=== PATIENT | male | born 1965 | race Caucasian/White ===

== ENCOUNTER 2021-06-24 17:11 | Inpatient (IN) ==
[2021-06-24 18:18] LABS: Basophils # (auto) 0.02 K/uL (0-0.2); Basophils % (auto) 0.5 %; Eosinophils # (auto) 0.06 K/uL (0-0.5); Eosinophils % (auto) 1.5 %; Hematocrit (blood only) 45.2 % (42-52); Hemoglobin 15.6 g/dL (14.0-18.0); Lymphocytes # (auto) 1.55 K/uL (1.2-3.4); Lymphocytes % (auto) 39.8 %; Mean Corpuscular Hemoglobin 31.5 pg (25-34); Mean Corpuscular Hgb Conc 34.5 g/dL (32-36); Mean Corpuscular Volume 91.1 fL (80-100); Mean Platelet Volume 9.8 fL (7.4-10.4); Monocytes % (auto) 10.3 %; Neutrophils # (auto) 1.86 K/uL (1.4-6.5); Neutrophils % (auto) 47.9 %; Platelet Count 249 K/uL (130-400); RDW Coefficient of Variation 12.4 % (11.5-14.5); RDW Standard Deviation 41.2 fL (36.4-46.3); Red Blood Count 4.96 M/uL (4.7-6.1); White Blood Count 3.89 K/uL (4.8-10.8)
[2021-06-24] MEDS ORDERED: ASPIRIN CHEW 324 MG PO STA (18:25)
[2021-06-24 18:30] LABS: Partial Thromboplastin Time 25.4 Seconds (21.0-31.0); Prothrombin Time 9.8 Seconds (9.0-12.0)
--- NOTE | 2021-06-24 18:35 | Emergency Department Note ---
History of Present Illness General Chief complaint: Chest Pain Stated complaint: LEFT ARM NUMB, CHEST DISCOMFORT AND PAIN Time Seen by Provider: 06/24/21 18:12 History of Present Illness Maximum Pain Intensity: 2 This 56-year-old male patient presents to the emergency department today for evaluation of chest pain. The patient states he has been experiencing intermittent chest pains since Tuesday. 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 The patient states he was seen by the school nurse where he had his vitals checked which were normal. He states upon rest, his symptoms resolved, but when he resumed his rounds, the symptoms worsened again. He was then evaluated by his PCP who completed an EKG, prescribed the patient nitroglycerin and scheduled him for a stress test on Tuesday. The patient states his pain has not completely subsided and he noticed pain after he got home, so he contacted his brother who is a physician who recommended he come to the emergency department for evaluation of his symptoms. The patient states that this time, he is experiencing pain of a 1/10, primarily he describes a "weird sensation" in the medial aspect of his left upper extremity. No pain in the chest. The patient does report a history of hypertension and hyperlipidemia as well as family history of [place] in his father at 55 years old. Home Medications Medication Instructions Recorded Confirmed Type aspirin 81 mg tablet,delayed 81 mg PO .TODAY 06/24/21 06/24/21 History release cholecalciferol (vitamin D3) 125 125 mcg PO DAILY 06/24/21 06/24/21 History mcg (5,000 unit) tablet (Vitamin D3) multivitamin 1 tab PO DAILY 06/24/21 06/24/21 History omega-3 fatty acids 1,000 mg PO DAILY 06/24/21 06/24/21 History omeprazole 20 mg capsule,delayed 20 mg PO DAILY 06/24/21 06/24/21 History release rosuvastatin 10 mg tablet (Crestor) 10 mg PO QID 06/24/21 06/24/21 History turmeric 400 mg capsule 800 mg PO DAILY 06/24/21 06/24/21 History valsartan 80 mg tablet (Diovan) 80 mg PO DAILY 06/24/21 06/24/21 History zinc 50 mg tablet 50 mg PO DAILY 06/24/21 06/24/21 History Allergies Allergy/AdvReac Type Severity Reaction Status Date / Time No Known Allergies Allergy Unknown Verified 06/24/21 19:33 Past Med/Surg History Medical History GERD (gastroesophageal reflux disease) H/O: HTN (hypertension) Hyperlipidemia Family History Father Myocardial infarction, Onset Age: 55 Social History Smoking Status: Never smoker Hx Alcohol Use: No Hx Substance Use: No Preferred Language: Greek Communication Ability: Effective Risk Developer Required: No Beliefs That Will Affect Care: None Current Living Situation: Spouse Other Information That Helps Us Care for You: No Feels Safe at Home: Yes Safety Concerns: Feels Safe At This Time Review of Systems A total of 10 systems reviewed and were otherwise negative Physical Exam Vital Signs Vital Signs - 24 hr 06/24/21 17:15 06/24/21 18:30 Temperature 36.4 C L Temperature Source Temporal Artery Scan Pulse Rate 81 Respiratory Rate 18 Respiratory Effort / Characteristics Non-Labored Respiratory Depth Normal Respiratory Pattern Regular Blood Pressure 168/109 H Blood Pressure Mean 128 Pulse Oximetry 97 Oxygen Delivery Method Room Air Room Air Oxygen Flow Rate 0 Sepsis Recent Fever Within 48 Hours No Sepsis New/Unexplained Change in Mental Status No Sepsis Action Taken by Nursing No Action Required VITALS: Vitals are noted on the nurse's note and reviewed by myself. Vital signs stable. GENERAL: This is a 56 year old white male, in no acute distress, nondiaphoretic, well-developed well-nourished. SKIN: The skin was without rashes, erythema, edema, or bruising. There is no tenting of the skin. Capillary refill less than 2 seconds. HEAD: Normocephalic atraumatic. EYES: Conjunctivae without injection, sclerae without icterus. NECK: Supple without nuchal rigidity. No lymphadenopathy. No JVD. HEART: Regular rate and rhythm without murmurs gallops or rubs. LUNGS: Clear to auscultation bilaterally without wheezes, rales or rhonchi. No retractions or accessory muscle use. MUSCULOSKELETAL: No muscle atrophy, erythema, or edema noted. Full range of motion without joint tenderness in all extremities. No tenderness to palpation. Normal gait. Strength 5/5 throughout. NEURO: Patient was alert and oriented to person place and time. Normal sensation to light and sharp touch. No focal neurological deficits. Course Course The patient was seen and evaluated as above. I discussed the case with my attending physician. An order was placed for continuous cardiac monitoring. The monitor shows a normal sinus rhythm at a rate of 60 bpm. IV access obtained, labs drawn. Patient medicated with p.o. aspirin. Imaging performed and reviewed by myself and radiologist as noted. Labs reviewed by myself. I discussed the findings with the patient at bedside. I again discussed the case with my attending. I discussed the case with Dr. Castro, resident physician the [facility] hospitalist group, working with Dr. Orozco. She did agree to see and evaluate the patient for admission. Please see hospitalist dictation regarding ongoing management and care of this patient. Administered Medications Discontinued Medications Aspirin (Aspirin Chew 324 Mg) 324 mg PO NOW STA Stop: 06/24/21 18:26 Last Admin: 06/24/21 18:29 Dose: 324 mg Documented by: [id number] Medical Decision Making Differential Diagnosis Cardiac ischemia, aortic dissection, pulmonary embolism, pneumothorax, pneumonia, pericarditis, myocarditis, esophageal rupture, GERD, cholecystitis, pancreatitis, musculoskeletal, as well as other pathologies. Medical Records Attestation: I reviewed the patient's medical records. Home Medications Current Medication List: was personally reviewed by me Laboratory Data Attestation: I reviewed the patient's lab results. No leukocytosis, anemia, thrombocytopenia. Renal, hepatic function, and electrolytes without significant abnormality. INR 1.0. Troponin elevated at 0.193. Result diagrams: 06/24/21 18:08 06/24/21 18:08 Lab Results 06/24/21 06/24/21 06/24/21 Range/Units 18:08 18:08 18:08 WBC 3.89 L (4.8-10.8) K/uL RBC 4.96 (4.7-6.1) M/uL Hgb 15.6 (14.0-18.0) g/dL Hct 45.2 (42-52) % MCV 91.1 (80-100) fL MCH 31.5 (25-34) pg MCHC 34.5 (32-36) g/dL RDW Std Deviation 41.2 (36.4-46.3) fL RDW Coeff of Hima 12.4 (11.5-14.5) % Plt Count 249 (130-400) K/uL MPV 9.8 (7.4-10.4) fL Immature Gran % (Auto) 0.0 % Neut % (Auto) 47.9 % Lymph % (Auto) 39.8 % Hand % (Auto) 10.3 % Eos % (Auto) 1.5 % Baso % (Auto) 0.5 % Neut # (Auto) 1.86 (1.4-6.5) K/uL Lymph # (Auto) 1.55 (1.2-3.4) K/uL Hand # (Auto) 0.40 (0.11-0.59) K/uL Eos # (Auto) 0.06 (0-0.5) K/uL Baso # (Auto) 0.02 (0-0.2) K/uL Immature Gran # (Auto) 0.00 (0.00-0.02) K/uL PT 9.8 (9.0-12.0) Seconds INR 1.0 (0.9-1.1) APTT 25.4 (21.0-31.0) Seconds PTT Ratio 1.0 Sodium 140 (136-145) mmol/L Potassium 4.0 (3.5-5.1) mmol/L Chloride 110 H (98-107) mmol/L Carbon Dioxide 27 (21-32) mmol/L Anion Gap 3.0 (3-11) BUN 16 (7-18) mg/dl Creatinine 1.14 (0.6-1.4) mg/dl Est Cr Clr Drug Dosing 68.9 ml/min Est GFR ( Amer) 83.4 ml/min Est GFR (Non-Af Amer) 72.0 ml/min BUN/Creatinine Ratio 13.7 (10-20) Glucose 98 (70-99) mg/dl Calcium 9.0 (8.5-10.1) mg/dl Total Bilirubin 1.1 H (0.2-1) mg/dl Direct Bilirubin (0-0.2) mg/dl AST 29 (15-37) U/L ALT 46 (12-78) U/L Alkaline Phosphatase 61 (45-117) U/L Troponin I 0.193 H* (0-0.045) ng/ml Total Protein 7.8 (6.4-8.2) gm/dl Albumin 3.8 (3.4-5.0) gm/dl Globulin 4.0 (2.5-4.0) gm/dl Albumin/Globulin Ratio 1.0 (0.9-2) COVID-19 Eval Order SARS-CoV-2 (PCR) (Negative) 06/24/21 06/24/21 06/24/21 Range/Units 18:08 19:23 19:23 WBC (4.8-10.8) K/uL RBC (4.7-6.1) M/uL Hgb (14.0-18.0) g/dL Hct (42-52) % MCV (80-100) fL MCH (25-34) pg MCHC (32-36) g/dL RDW Std Deviation (36.4-46.3) fL RDW Coeff of Hima (11.5-14.5) % Plt Count (130-400) K/uL MPV (7.4-10.4) fL Immature Gran % (Auto) % Neut % (Auto) % Lymph % (Auto) % Hand % (Auto) % Eos % (Auto) % Baso % (Auto) % Neut # (Auto) (1.4-6.5) K/uL Lymph # (Auto) (1.2-3.4) K/uL Hand # (Auto) (0.11-0.59) K/uL Eos # (Auto) (0-0.5) K/uL Baso # (Auto) (0-0.2) K/uL Immature Gran # (Auto) (0.00-0.02) K/uL PT (9.0-12.0) Seconds INR (0.9-1.1) APTT (21.0-31.0) Seconds PTT Ratio Sodium (136-145) mmol/L Potassium (3.5-5.1) mmol/L Chloride (98-107) mmol/L Carbon Dioxide (21-32) mmol/L Anion Gap (3-11) BUN (7-18) mg/dl Creatinine (0.6-1.4) mg/dl Est Cr Clr Drug Dosing ml/min Est GFR ( Amer) ml/min Est GFR (Non-Af Amer) ml/min BUN/Creatinine Ratio (10-20) Glucose (70-99) mg/dl Calcium (8.5-10.1) mg/dl Total Bilirubin (0.2-1) mg/dl Direct Bilirubin 0.2 (0-0.2) mg/dl AST (15-37) U/L ALT (12-78) U/L Alkaline Phosphatase (45-117) U/L Troponin I (0-0.045) ng/ml Total Protein (6.4-8.2) gm/dl Albumin (3.4-5.0) gm/dl Globulin (2.5-4.0) gm/dl Albumin/Globulin Ratio (0.9-2) COVID-19 Eval Order Covid19 at [facility] SARS-CoV-2 (PCR) NEGATIVE (Negative) Imaging Data Radiologist's Impression: Chest X-Ray 06/24/21 17:48 XR chest 1V portable HISTORY: Atypical Chest Pain COMPARISON: None. FINDINGS: The lungs are clear. Cardiac silhouette is normal in size. No pleural effusions. No pneumothorax. Prior cholecystectomy. IMPRESSION: No acute process. ACT 112: Negative or not required by law. Electronically signed by: Cesar Ruvalcaba M.D. 06/24/2021 6:55 PM ECG Data Attestation: I personally reviewed and interpreted this ECG as follows: Indication: + chest pain Rate (beats per minute): 72 Rhythm: + normal sinus ECG [place]: + Normal ECG ST segments: no ST depression, no ST elevation or no T-wave inversions Comparison ECG Date: from (09/10/2019) Change: no significant change MDM Narrative This 56-year-old male patient presents to the emergency department today for evaluation of chest pain. This was exertional in nature, occurring twice earlier today. He has had short episodes of the chest pain earlier in the week. He did see his PCP who prescribed him nitroglycerin and scheduled him for an outpatient stress test to be completed on Tuesday, but the patient decided to come to the ED for evaluation of the pain. Upon arrival, he is reporting only some left arm discomfort, no chest pain at all. He was medicated with aspirin initially. Work-up completed as noted. The patient was found to have an gabrielle vated troponin. No ST changes on EKG. I discussed the case with my attending physician. The patient will be [facility] to the [facility] for ongoing management. Please see hospitalist dictation regarding further care and final disposition. The chart was completed utilizing [employer] Speech voice recognition software. Grammatical errors, random word insertions, pronoun errors, and incomplete sentences are an occasional consequence of this system due to software limitations, ambient noise, and hardware issues. Any formal questions or concerns about the content, text, or information contained within the body of this dictation should be directly addressed to the provider for clarification. Impression & Plan Chest pain, H/O: HTN (hypertension), Hyperlipidemia Discharge Plan Visit Data Chief Complaint: Chest Pain Stated Complaint: LEFT ARM NUMB, CHEST DISCOMFORT AND PAIN ED Provider: Rico Hoskins ED Midlevel Provider: Gemini Viera Discharge Problem: Chest pain, H/O: HTN (hypertension), Hyperlipidemia Patient Disposition: Admitted As Inpatient Discharge Instructions Interventions: ED Discharge Assessment Last Done: 06/24/21 21:37
[2021-06-24 18:38] LABS: Albumin Level 3.8 gm/dl (3.4-5.0); BUN Creatinine Ratio 13.7 (10-20); Creatinine Clr Calc Pharmacy 68.9 ml/min; Est GFR (African American) 83.4 ml/min
[2021-06-24 18:46] LABS: Bilirubin,Total 1.1 mg/dl (0.2-1); Total Protein 7.8 gm/dl (6.4-8.2); Troponin I 0.193 ng/ml (0-0.045)
--- NOTE | 2021-06-24 18:56 | XRay Report ---
XR chest 1V portable HISTORY: Atypical Chest Pain COMPARISON: None. FINDINGS: The lungs are clear. Cardiac silhouette is normal in size. No pleural effusions. No pneumot horax. Prior cholecystectomy. IMPRESSION: No acute process. ACT 112: Negative or not required by law. Electronically signed by: Cesar Ruvalcaba M.D. 06/24/2021 6:55 PM
--- NOTE | 2021-06-24 20:07 | History & Physical Report ---
Date of Service June 24, 2021 Assessment & Plan (1) Chest pain: Plan: Mr. Houser is a 56 yo gentleman with a PMHx of HTN and HLD who came in for evaluation of left sided chest pain. - description of new onset CP occurring with increased frequency is consistent with unstable angina - HEART SCORE of 6, moderate risk - initial troponin 0.193. Trend serial levels - EKG without acute ST segment changes - will not heparinize at this time as he had no chest pain at the time of admission - resting echo ordered for am - check lipid panel and HbA1c - cardiology consult placed: anticipate discussion of potential cath vs. stress test in coming days - nitro prn for chest pain (2) Elevated bilirubin: Plan: - T bili 1.1 - direct bili ordered (3) GERD (gastroesophageal reflux disease): Plan: - continue home omeprazole (4) H/O: HTN (hypertension): Plan: - continue home valsartan (5) Hyperlipidemia: Plan: - continue home crestor and baby ASA Diet: NPO in the event of possible cath Dvt ppx: scds; start Lovenox if no cath or after procedure Dispo: Med/tele Code: Full, I discussed with patient History of Present Illness Primary Care Provider: Lawrence Franklin Mr. Houser is a 56 yo gentleman with a PMHx of hypertension and hyperlipidemia who came in today for evaluation of left sided chest pain. He first experienced left sided chest pain on Tuesday06/22/21 - it lasted < 15 minutes and then subsided without intervention. It recurred again on Tuesday06/23/21 with a similar duration and disappearance. 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 This time it radiated down the left arm. There was no associated SOB, diaphoresis or nausea. He went to the school nurse, who took his vital signs and told him they were normal. He then went to see his PCP, Dr. Franklin for an office visit. Dr. Franklin ordered an in office EKG, which Mr. Houser was told was normal. He also sent in a script for nitroglycerin and scheduled him for a stress test on 06/26/21. Mr. Houser took the rest of the day off work - after speaking with his brother who is a physician, he decided to come in to the ED for further evaluation. Family history: Father had a heart attack at the age of 55. Social Hx: No tobacco use. Drinks ~ 10 alcohol beverages per week (beer/wine). In the ED, he was afebrile with normal HR and breathing. BP slightly elevated to 168/109. His WBC was mildly low at 3.89; CBC otherwise unremarkable. Coags normal. T bili mildly elevated at 1.1. CMP normal. Trop elevated to 0.193. CXR showing no acute process. EKG showing NSR, no acute ST segments changes, appears unchanged from previous. He wa given ASA 324mg. Allergies Allergy/AdvReac Type Severity Reaction Status Date / Time No Known Allergies Allergy Unknown Verified 06/24/21 19:33 Home Medications Medication Instructions Recorded Confirmed Type aspirin 81 mg tablet,delayed 81 mg PO .TODAY 06/24/21 06/24/21 History release cholecalciferol (vitamin D3) 125 125 mcg PO DAILY 06/24/21 06/24/21 History mcg (5,000 unit) tablet (Vitamin D3) multivitamin 1 tab PO DAILY 06/24/21 06/24/21 History omega-3 fatty acids 1,000 mg PO DAILY 06/24/21 06/24/21 History omeprazole 20 mg capsule,delayed 20 mg PO DAILY 06/24/21 06/24/21 History release rosuvastatin 10 mg tablet (Crestor) 10 mg PO QID 06/24/21 06/24/21 History turmeric 400 mg capsule 800 mg PO DAILY 06/24/21 06/24/21 History valsartan 80 mg tablet (Diovan) 80 mg PO DAILY 06/24/21 06/24/21 History zinc 50 mg tablet 50 mg PO DAILY 06/24/21 06/24/21 History Past Med/Surg History Medical History (Updated 06/24/21 @ 20:17 by Patricia Castro MD) GERD (gastroesophageal reflux disease) H/O: HTN (hypertension) Hyperlipidemia Family History Father Myocardial infarction, Onset Age: 55 Social History Smoking Status: Never smoker Feels Safe at Home: Yes Review of Systems Review of Systems: All systems reviewed & are unremarkable except as noted in HPI & below Physical Exam Constitutional: WD/WN, vitals as above cooperative and comfortable; no acute distress Eyes: + anicteric sclerae ENMT: external ear and nose normal, oropharynx normal Neck: trachea midline Respiratory: normal respiratory effort, lungs clear to auscultation Cardiovascular: RRR, no murmur, no edema Heart Sounds: normal S1 and normal S2 Vessels: normal carotid upstroke; no carotid bruit Extremities: no pedal edema Gastrointestinal (Abdomen): normal bowel sounds, soft, nontender, no hepatosplenomegaly Musculoskeletal: Head/Neck/Chest: normocephalic and head atraumatic Skin: no rashes, warm and dry Neurologic: moves all extremities Psychiatric: A+Ox3, euthymic affect Results & Data Results & Data ([facility]) Vital Signs (Past 12 Hours) Vital Signs Temp Pulse Pulse Resp BP BP Pulse Ox 06/24/21 19:55 60 172/116 H 98 06/24/21 17:15 36.4 C L 81 18 168/109 H 97 Laboratory Results Laboratory Results WBC 3.89 K/uL (4.8-10.8) L 06/24/21 18:08 RBC 4.96 M/uL (4.7-6.1) 06/24/21 18:08 Hgb 15.6 g/dL (14.0-18.0) 06/24/21 18:08 Hct 45.2 % (42-52) 06/24/21 18:08 MCV 91.1 fL (80-100) 06/24/21 18:08 MCH 31.5 pg (25-34) 06/24/21 18:08 MCHC 34.5 g/dL (32-36) 06/24/21 18:08 RDW Std Deviation 41.2 fL (36.4-46.3) 06/24/21 18:08 RDW Coeff of Hima 12.4 % (11.5-14.5) 06/24/21 18:08 Plt Count 249 K/uL (130-400) 06/24/21 18:08 MPV 9.8 fL (7.4-10.4) 06/24/21 18:08 Immature Gran % (Auto) 0.0 % 06/24/21 18:08 Neut % (Auto) 47.9 % 06/24/21 18:08 Lymph % (Auto) 39.8 % 06/24/21 18:08 [place] % (Auto) 10.3 % 06/24/21 18:08 Eos % (Auto) 1.5 % 06/24/21 18:08 Baso % (Auto) 0.5 % 06/24/21 18:08 Neut # (Auto) 1.86 K/uL (1.4-6.5) 06/24/21 18:08 Lymph # (Auto) 1.55 K/uL (1.2-3.4) 06/24/21 18:08 [place] # (Auto) 0.40 K/uL (0.11-0.59) 06/24/21 18:08 Eos # (Auto) 0.06 K/uL (0-0.5) 06/24/21 18:08 Baso # (Auto) 0.02 K/uL (0-0.2) 06/24/21 18:08 Immature Gran # (Auto) 0.00 K/uL (0.00-0.02) 06/24/21 18:08 PT 9.8 Seconds (9.0-12.0) 06/24/21 18:08 INR 1.0 (0.9-1.1) 06/24/21 18:08 APTT 25.4 Seconds (21.0-31.0) 06/24/21 18:08 PTT Ratio 1.0 06/24/21 18:08 Sodium 140 mmol/L (136-145) 06/24/21 18:08 Potassium 4.0 mmol/L (3.5-5.1) 06/24/21 18:08 Chloride 110 mmol/L (98-107) H 06/24/21 18:08 Carbon Dioxide 27 mmol/L (21-32) 06/24/21 18:08 Anion Gap 3.0 (3-11) 06/24/21 18:08 BUN 16 mg/dl (7-18) 06/24/21 18:08 Creatinine 1.14 mg/dl (0.6-1.4) 06/24/21 18:08 Est Cr Clr Drug Dosing 68.9 ml/min 06/24/21 18:08 Est GFR ( Amer) 83.4 ml/min 06/24/21 18:08 Est GFR (Non-Af Amer) 72.0 ml/min 06/24/21 18:08 BUN/Creatinine Ratio 13.7 (10-20) 06/24/21 18:08 Glucose 98 mg/dl (70-99) 06/24/21 18:08 Calcium 9.0 mg/dl (8.5-10.1) 06/24/21 18:08 Total Bilirubin 1.1 mg/dl (0.2-1) H 06/24/21 18:08 AST 29 U/L (15-37) 06/24/21 18:08 ALT 46 U/L (12-78) 06/24/21 18:08 Alkaline Phosphatase 61 U/L (45-117) 06/24/21 18:08 Troponin I 0.193 ng/ml (0-0.045) H* 06/24/21 18:08 Total Protein 7.8 gm/dl (6.4-8.2) 06/24/21 18:08 Albumin 3.8 gm/dl (3.4-5.0) 06/24/21 18:08 Globulin 4.0 gm/dl (2.5-4.0) 06/24/21 18:08 Albumin/Globulin Ratio 1.0 (0.9-2) 06/24/21 18:08 COVID-19 Eval Order Covid19 at [facility] 06/24/21 19:23 SARS-CoV-2 (PCR) NEGATIVE (Negative) 06/24/21 19:23 Impressions Chest X-Ray 06/24/21 17:48 XR chest 1V portable HISTORY: Atypical Chest Pain COMPARISON: None. FINDINGS: The lungs are clear. Cardiac silhouette is normal in size. No pleural effusions. No pneumothorax. Prior cholecystectomy. IMPRESSION: No acute process. ACT 112: Negative or not required by law. Electronically signed by: Cesar Ruvalcaba M.D. 06/24/2021 6:55 PM Supervising Physician Co-Signing Physician Notes Patient seen and examined, chart reviewed, case discussed with Dr. Castro and I agree with her assessment and plan as documented above. In brief, patient is a 56yo male with history of HTN, HLP, FHx of [place] in father at age 55 presenting with several episodes of left sided chest discomfort over the last several days. Troponin elevated at 0.193 Presently chest pain free Exam is unremarkable. Patient is mildly hypertensive +S1/S2, regular, no m/r/g, no reproducible chest wall pain Lungs CTA Abd - +BS, soft, NT/ND Ext - warm, well perfused, no clubbing/cyanosis or edema Labs and images reviewed Assessment/Plan 56yo male with history of HTN, HLP, FHx of ND in father at age 55 presenting with several days of episodic left sided chest discomfort, elevated troponin -Telemetry monitoring -Trend troponin -Check 2D echo -Cardiology consultation appreciated - ?catheterization -Remainder of plan as above Resident Activity Tracking Resident Involvement: Resident Care Provided Care Provided: Adult Hospital Medicine
[2021-06-24] MEDS ORDERED: NITROGLYCERIN SL 0.4 MG/TAB TAB SL PRN (22:14)
[2021-06-24] MEDS ORDERED: ACETAMINOPHEN 325 MG TAB PO PRN (22:14)
[2021-06-24] MEDS ORDERED: POLYETHYLENE (MIRALAX) 17 GM PACK PO PRN (22:14)
[2021-06-24] MEDS ORDERED: ONDANSETRON INJ 2 MG/ML 2 ML VIAL IV PRN (22:14)
--- NOTE | 2021-06-24 22:18 | Billing Data ---
Date of Service June 24, 2021 Coding Level of Care Code INT OBSERVATION CARE 50M LVL 2
[2021-06-25] MEDS: ROSUVASTATIN CALCIUM 10 MG TAB PO SCH ×2 (00:05→14:58)
[2021-06-25 06:45] LABS: Chol HDL Ratio 3; Cholesterol 142 mg/dl (0-200); HDL Cholesterol 56 mg/dl; LDL Cholesterol Calculated 74 mg/dl; Triglycerides 61 mg/dl (0-150); VLDL Cholesterol 12 mg/dl
[2021-06-25] MEDS ORDERED: Heparin IV Adult Wt-Based Standard *NO* Bolus Protocol IV ONE (06:56)
[2021-06-25] MEDS ORDERED: HEPARIN SODIUM/DEXTROSE 25,000 UNITS/500 ML BAG IV SCH (07:15)
[2021-06-25 07:25] LABS: Estimated Average Glucose 117 mg/dl; Hemoglobin A1C 5.7 % (4.5-5.6)
--- NOTE | 2021-06-25 07:32 | Hospitalist Progress Note ---
Date of Service June 25, 2021 Assessment & Plan (1) Chest pain: Plan: 56yo male with HTN and HLD presented with chest pain concerning for ACS. Patient underwent cardiac catheterization and is stable at this time. Chest pain Patient with a few-day history of exertional chest pain in the setting of multiple ACS risk factors including family history Troponin elevated on admission to 0.193, increased to 0.494 Symptoms very concerning for unstable angina; heparin gtt started EKG unremarkable, echocardiogram notes normal left ventricular systolic function without wall motion abnormalities Cardiology consulted, patient was taken to catheterization on 06/25 in the afternoon; findings: Obstructive coronary disease involving the 2nd diagonal branch. Right dominant coronary system Normal left ventricular filling pressures No evidence of aortic stenosis Started metoprolol tartrate 12.5mg bid, imdur 30mg qAM, ASA 81mg qAM Continue valsartain 80mg PO qd HLD Rosuvastatin increased from 10mg to 20mg qAM GERD Continue pantoprazole FEN: heart-healthy diet Code status: full code DVT ppx: heparin PT/OT: not indicated Dispo: PCU tele for post-catheterization recovery Admission and Anticipated Discharge Date Admission Date: June 24, 2021 Supervising Physician Co-Signing Physician Notes Patient seen and examined with PGY-2, Dr. Segal. Agree with history, exam findings, assessment and plan of care as outlined. In brief, Melvin is a 56-year-old male with history of hypertension and hyperlipidemia admitted with chest pain concerning for unstable angina. Seen this afternoon following his cardiac catheterization. Feels well. No chest pain or dyspnea. Vital signs and nursing notes reviewed. Well-appearing. Heart with regular rate and rhythm. No murmur. Imaging and labs reviewed. 1. NSTEMI. EKG without ischemic changes. Echo earlier this morning shows normal left ventricular systolic function. No wall motion abnormalities. Grade 1 diastolic dysfunction. Cardiac catheterization showed 70% stenosis of the left diagonal branch. Increased his home Crestor to 20 mg. Continued home valsartan 80 mg and aspirin 81 mg. Started metoprolol and Imdur. LDL 74, A1c 5.7% continue heparin drip. 2. Hypertension. See medications above. 3. Prediabetes. Hemoglobin A1c 5.7%. Medication management deferred at this time. Would benefit from weight loss and continued dietary discretion and regular physical activity. Dispo: pending clinical improvement. Subjective Patient seen and evaluated at bedside this afternoon. Patient just returned from catheterization and is feeling well. Denies chest pain at this time. Patient denies SOB, abdominal pain, nausea, vomiting, lightheadedness, dizziness, or other symptoms. Review of Systems Review of Systems: See HPI Physical Exam Physical Exam: Constitutional: well-appearing, no acute distress CV: regular rhythm, no murmur appreciated, extremities well-perfused, no LE edema Resp: CTABL, no wheezes/rales/rhonchi appreciated, no increased work of breathing MSK: no gross deformities appreciated Skin: warm, dry, no rash appreciated Neuro: AOx4, no focal neurological deficits appreciated Results & Data Results & Data ([facility]) Vital Signs (Past 12 Hours) Vital Signs Temp Pulse Pulse Resp BP Pulse Ox 06/25/21 06:24 36.7 C 66 18 143/71 H 95 06/25/21 02:42 36.8 C 65 18 142/86 H 99 06/24/21 22:19 57 L 06/24/21 22:02 59 L 06/24/21 21:50 36.7 C 62 12 156/96 H 97 06/24/21 20:13 158/89 H 06/24/21 19:55 60 172/116 H 98 Resident Activity Tracking Resident Involvement: Resident Care Provided Care Provided: Adult Hospital Medicine (1) Chest pain Chest pain type: unspecified Qualified Code(s): R07.9 - Chest pain, unspecified
--- NOTE | 2021-06-25 08:58 | Electrocardiogram Report ---
Test Reason : Blood Pressure : / mmHG Vent. Rate : 072 BPM Atrial Rate : 072 BPM P-R Int : 168 ms QRS Dur : 094 ms QT Int : 388 ms P-R-T Axes : 057 001 019 degrees QTc Int : 424 ms Normal sinus rhythm When compared with ECG of 10-SEP-2019 12:31, No significant change was found Confirmed by German Tay ([id number]) on 06/25/2021 8:58:24 AM Referred By: REFERRED SELF Confirmed By:Hung Tay
--- NOTE | 2021-06-25 09:28 | Pre Anesthesia Assessment ---
Date of Service June 25, 2021 Pre Sedation Assessment Vital Signs Temp Pulse Pulse Resp BP BP Pulse Ox 06/25/21 08:09 36.5 C 67 18 126/78 96 06/25/21 06:24 36.7 C 66 18 143/71 H 95 06/25/21 02:42 36.8 C 65 18 142/86 H 99 06/24/21 22:19 57 L 06/24/21 22:02 59 L 06/24/21 21:50 36.7 C 62 12 156/96 H 97 06/24/21 20:13 158/89 H 06/24/21 19:55 60 172/116 H 98 06/24/21 17:15 36.4 C L 81 18 168/109 H 97 Cardiovascular + regular rate and + regular rhythm Respiratory + respiratory effort normal Pre-Sedation Airway Assessment Smoking Status: Never smoker Hx Sleep Apnea: No Hx Difficult Intubation: No Short, Thick Neck: No Thyromental Distance: > or= 3.5 Finger Breadths Oral Cavity: + WNL Mallampati Class: III ASA: ASA3 NPO Status Date of Last Intake of Fluids: 06/24/21 Time of Last Intake of Fluids: 20:00 Date of Last Intake of Solid Food: 06/24/21 Time of Last Intake of Solid Foods: 20:00 Procedure Planning Contraindications for Sedation: none Current Medications Reviewed: Yes Notes The planned sedation has been discussed with the patient. Informed Consent was obtained. I have identified the patient, determined the appropriateness of sedation and have assessed the patient immediately prior to the procedure. All medicine(s) and interventions are by my order.
[2021-06-25] MEDS ORDERED: NITROGLYCERIN/D5W 100MCG/ML 20ML SYR ONE (09:32)
[2021-06-25] MEDS ORDERED: MIDAZOLAM HCL 1 MG/ML 2ML VIAL ONE (09:32)
[2021-06-25] MEDS ORDERED: HEPARIN (PORCINE) 1000 UNIT/ML 10 ML (CATH LAB USE ONLY) ONE (09:32)
[2021-06-25] MEDS ORDERED: fentaNYL citrate 100 MCG/2 ML VIAL ONE (09:32)
[2021-06-25] MEDS ORDERED: niCARdipine HCL INJ 2.5 MG/ML 10 ML AMP ONE (09:32)
--- NOTE | 2021-06-25 09:40 | Cardiology Consultation ---
Date of Consultation June 25, 2021 Assessment & Plan (1) Chest pain: -symptoms are concerning for unstable angina pectoris. -troponin elevated 0.494. -heparin started last evening for rest symptoms. -echocardiogram notes normal left ventricular systolic function without wall motion abnormalities. -would proceed with a cardiac catheterization this morning. (2) H/O: HTN (hypertension): -adequate control on current regimen. (3) Hyperlipidemia: -continue rosuvastatin. History of Present Illness Attending Physician: Alejo Harris DO History of Present Illness Mr. Houser is a 56 year male admitted yesterday with a chest pain syndrome. This consultation was ordered to assistance cardiac management. Of note, patient is well known to me from the outpatient setting. The patient was in his usual state health until approximately 6:30 a.m. on . 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 He developed substernal chest pressure while walking throughout the school. The patient sat down to rest and his symptoms resolved after several minutes. On the following morning, exact same scenario developed. Again, his symptoms lasted for several minutes. On Tuesday morning, he again noted symptoms, however, had some radiation to the left arm. He was evaluated by the school nurse and then sent to his primary care physician. He was seen by Dr. Franklin that same day. He was given sublingual nitroglycerin and set up for an outpatient stress test. The patient and contacted his brother, Dr. Leroy Houser who recommended he proceed to the emergency room for further care. On arrival here, the patient's EKG was normal, however, his troponin was elevated 0.193. Troponin increased to 0.494. The patient did experience some chest symptoms last evening and was started on intravenous heparin. Currently, patient is resting comfortably in bed without complaints. We have discussed need for a cardiac catheterization. Past medical and surgical history 1. Hypertension 2. Hypercholesterolemia 3. Hyperglycemia 4. GERD 5. Laparoscopic cholecystectomy-August 2005 Social history , lives with his . 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 Review of systems A 10 review systems was negative except for that described above. Allergies Allergy/AdvReac Type Severity Reaction Status Date / Time No Known Allergies Allergy Unknown Verified 06/24/21 19:33 Home Medications Medication Instructions Recorded Confirmed Type aspirin 81 mg tablet,delayed 81 mg PO .TODAY 06/24/21 06/24/21 History release cholecalciferol (vitamin D3) 125 125 mcg PO DAILY 06/24/21 06/24/21 History mcg (5,000 unit) tablet (Vitamin D3) multivitamin 1 tab PO DAILY 06/24/21 06/24/21 History omega-3 fatty acids 1,000 mg PO DAILY 06/24/21 06/24/21 History omeprazole 20 mg capsule,delayed 20 mg PO DAILY 06/24/21 06/24/21 History release rosuvastatin 10 mg tablet (Crestor) 10 mg PO QID 06/24/21 06/24/21 History turmeric 400 mg capsule 800 mg PO DAILY 06/24/21 06/24/21 History valsartan 80 mg tablet (Diovan) 80 mg PO DAILY 06/24/21 06/24/21 History zinc 50 mg tablet 50 mg PO DAILY 06/24/21 06/24/21 History Patient History Medical History GERD (gastroesophageal reflux disease) H/O: HTN (hypertension) Hyperlipidemia Family History Father Myocardial infarction, Onset Age: 55 Social History Smoking Status: Never smoker Hx Alcohol Use: No Hx Substance Use: No Preferred Language: [place] Communication Ability: Effective Truck Repair Supervisor Required: No Beliefs That Will Affect Care: None Current Living Situation: Spouse Other Information That Helps Us Care for You: No Feels Safe at Home: Yes Safety Concerns: Feels Safe At This Time Physical Exam Physical Exam: In general this is a well-developed well-nourished white male in no acute distress. HEENT exam is negative. Neck is supple with full carotid upstrokes. There are no carotid bruits. Jugular venous pressure is flat at 90. There is no thyromegaly. Cardiovascular exam reveals a regular rhythm with a normal S1 and S2. No S3, S4, or murmurs are noted. Lungs are clear without rales, rhonchi, or wheezes. Abdomen is soft and nontender without bruits. Extremities reveal intact radial artery and posterior tibial pulses bilaterally. There is no peripheral edema. Results & Data ([facility]) Vital Signs (Past 12 Hours) Vital Signs Temp Pulse Pulse Resp BP Pulse Ox 06/25/21 08:09 36.5 C 67 18 126/78 96 06/25/21 06:24 36.7 C 66 18 143/71 H 95 06/25/21 02:42 36.8 C 65 18 142/86 H 99 06/24/21 22:19 57 L 06/24/21 22:02 59 L 06/24/21 21:50 36.7 C 62 12 156/96 H 97 Laboratory Results CBC notes hemoglobin 15.6, hematocrit 45.2, white count 3.89, and platelet count of 615213. Electrolytes note a sodium of 140, potassium 4.0, chloride 110, bicarb 27, BUN 16, creatinine 1.14, glucose of 98. Initial troponin was 0.193 with follow-up values of 0.224 and 0.494. LDL cholesterol 74 with an HDL of 56. Diagnostic Findings EKG notes normal sinus rhythm without abnormalities. Chest x-ray shows no acute disease. PG Care Time/CCT Total # of Minutes Spent Total Time Spent with Patient: Total time spent is greater than 50% in coordination of care (as documented) at patient's floor/unit and/or counseling patient: Coding Level of Care Code 95889 Office/OBS Consult Lvl 5 Diagnoses Chest pain R07.9 Chest pain type: unspecified H/O: HTN (hypertension) Z86.79 Hyperlipidemia E78.5 (1) Chest pain Chest pain type: unspecified Qualified Code(s): R07.9 - Chest pain, unspecified
--- NOTE | 2021-06-25 09:58 | Cardiac Catheterization ---
[facility] Data: Technical System Analyst Cardiac Status Clinical evaluation leading to the procedure CAD Presenation: Non STEMI Diagnostic Physicians Name: German Tay MD Closure Device Recommendations: Medical Therapy and/or Counseling Cardiac Cath Procedure Full Procedure Date June 25, 2021 Pre-Procedure Diagnosis Pre-Procedure Diagnosis: Non STEMI AUC Score AUC Score: 8 Post-Procedure Diagnosis Post-Procedure Diagnosis: Moderate CAD Procedure(s) Performed Procedure(s) Performed: Coronary Angiography and Left Heart Cath Wad Blanking Press Adjuster German Tay MD Diagnostic Medical Sonographer(s) none Estimated Blood Loss Estimated Blood Loss: 7cc Medication(s) Medication(s): Fentanyl, Heparin, Lidocaine 1%, Nicardipine, Nitroglycerin and Versed Summary of Findings Procedure performed: Cardiac catheterization, left heart catheterization, coronary angiography Staff oil well fishing tool technician: German Tay MD Indication: The patient is a 56-year-old gentleman without a known history of coronary disease who presented with symptoms of exertional chest pain. He was noted to have elevated cardiac biomarkers. Based on his symptoms and objective findings he was advised to undergo coronary angiography. Procedure in detail: The patient was informed of the risks benefits and alternatives to the intended procedure, he understood such and wished to proceed. He was taken to the cardiac catheterization suite in a fasting state. Conscious sedation was administered per protocol and the patient was monitored electrocardiographically throughout today's procedure. The right wrist area was prepped and draped in usual sterile fashion. This area was anesthetized using subcutaneous administration of a lidocaine solution. The right radial artery was then accessed using Seldinger technique, and a arterial sheath was placed at this site over a guidewire. The sheath was used to facilitate passage of the cardiac catheter for coronary angiography and left heart catheterization. Coronary angiogram was then obtained in multiple orthogonal views prior to removal of the catheter. At the conclusion of the procedure the sheath was removed and hemostasis was achieved at the access site using manual pressure. The patient tolerated procedure well, there were no immediate complications. Equipment used: 5 [place] tiger 4 Findings: Coronary angiography Left main: Left main was normal in size and caliber and bifurcated normally into the left anterior descending left circumflex arteries. No significant disease in this vessel. Left anterior descending: Left anterior descending was large transapical vessel. It produced a small 1st diagonal branch and a large 2nd diagonal branch. There were several additional diminutive diagonal branches. There was a 70% stenosis at the ostium of D2. Left circumflex: Left circumflex was a nondominant vessel. It produced a large 1st OM system and a small 2nd OM. No significant obstructive disease. Right coronary artery: The right coronary artery was a large dominant vessel. It produced a PDA and a PLV. There was no obstructive disease in this vessel. Impression: Obstructive coronary disease involving the 2nd diagonal branch. Right dominant coronary system Normal left ventricular filling pressures No evidence of aortic stenosis Hemodynamics Rest Ao:: 106/60 mm of mercury Final Ao: 123/70 mm of mercury LV: 116/0 mm of mercury Left ventricular end-diastolic pressure 3 mm of mercury Recommendations Recommendations: Medical Therapy and/or Counseling Specimens Specimens: None Radiation Exposure (mGy) Six hundred twenty Contrast (mls) Thirty Procedural Complication(s) None Disposition PCU I attest to the content of the Intraoperative Record and any orders documented therein. Any exceptions are noted below. [facility] Card Cath Procedure Codes Cardiac Catheterization Procedure 1: Cardiovascular Cath Procedures: 68825 Coronaries and LHC (+/-LV) Moderate Sedation Procedure 1: Sedation/Anesthesia: 63750 Mod Sedation by the same physician;Init15 Min Child Age 5 & Up Procedure 2: Sedation/Anesthesia: 63670 Mod Sedation by the same physician; Ea [id number] Minutes PG Care Time/CCT Total # of Minutes Spent Total Time Spent with Patient: Total time spent is greater than 50% in coordination of care (as documented) at patient's floor/unit and/or counseling patient:
--- NOTE | 2021-06-25 10:04 | Post Anesthesia Assessment ---
Date of Service June 25, 2021 Post Sedation Assessment Vital Signs Temp Pulse Pulse Resp BP BP Pulse Ox 06/25/21 08:09 36.5 C 67 18 126/78 96 06/25/21 06:24 36.7 C 66 18 143/71 H 95 06/25/21 02:42 36.8 C 65 18 142/86 H 99 06/24/21 22:19 57 L 06/24/21 22:02 59 L 06/24/21 21:50 36.7 C 62 12 156/96 H 97 06/24/21 20:13 158/89 H 06/24/21 19:55 60 172/116 H 98 06/24/21 17:15 36.4 C L 81 18 168/109 H 97 Recovery Score Activity: Moves 4 extremities Respiration: Deep Breath/Cough Circulation: +/-20% PreAnes Value Consciousness: Fully Awake Oxygen Saturation: > 92% On Room Air Discharge Sedation Level of Care: Fast Track Phase II Post Sedation Plan On clinical assessment, the patient appears to have tolerated the sedation without complications. Patient is recovering as anticipated. Patient will continue to be monitored by nursing and may be discharged when sedation discharge criteria are met per below protocol. Upon Completions of procedure up to 15 minutes continue every 5 minute vital signs and the P.A.R. score; then discharge to a Phase I or Fast Track to Phase II per the following guidelines: * Discharge Patient to appropriate Phase II area if PAR is 8 or greater or return to pre- procedure baseline. The post - procedure orders will be as directed. * If PAR score is less than 8 or not return to pre-procedure baseline then patient will follow Phase I monitoring till PAR is reached for Phase II. The Phase I may be done in procedure room or may call to secure a Phase I area. * If naloxone or flumazenil are used for reversal, hold in Phase I for continued monitoring from when last reversal dose was given for a minimum of 60 minutes or longer pending the nurse and/or physician discretion of patient condition before discharge to Phase II. Please call the Sedation Physician to re-evaluate and complete post-note for discharge to Phase II area. Do NOT discharge from procedure sedation or Phase 1 until post- sedation evaluation note is complete by procedure /sedation MD Sedation Discharge Instructions to be given to the patient at discharge to home.
--- NOTE | 2021-06-25 11:01 | XCELERA ---
[id number]
[2021-06-25] MEDS: PANTOprazole 40 MG TAB PO SCH (14:54)
[2021-06-25] MEDS: ASPIRIN 81 MG ECTAB PO SCH (14:54)
[2021-06-25] MEDS: VALSARTAN 80 MG TAB PO SCH (14:55)
[2021-06-25] MEDS: METOPROLOL TARTRATE 25 MG TAB PO SCH ×2 (14:55→20:10)
[2021-06-25] MEDS: ISOSORBIDE MONO EXTENDED REL 30 MG TABCR PO SCH (14:55)
[2021-06-25 17:57] LABS: Partial Thromboplastin Time 26.1 Seconds (21.0-31.0)
[2021-06-26 01:06] LABS: Partial Thromboplastin Ratio 1.7
[2021-06-26 01:08] LABS: Partial Thromboplastin Time 45.8 Seconds (21.0-31.0)
[2021-06-26] MEDS ORDERED: ROSUVASTATIN CALCIUM 10 MG TAB PO SCH ×2 (08:00→09:00)
--- NOTE | 2021-06-26 08:06 | Hospitalist Progress Note ---
Date of Service June 26, 2021 Assessment & Plan (1) Chest pain: Plan: 56yo male with HTN and HLD presented with chest pain concerning for ACS. Patient underwent cardiac catheterization and is stable at this time. Chest pain Patient with a few-day history of exertional chest pain in the setting of multiple ACS risk factors including family history Troponin elevated on admission to 0.193, increased to 0.494 Symptoms very concerning for unstable angina; heparin gtt started EKG unremarkable, echocardiogram notes normal left ventricular systolic function without wall motion abnormalities Cardiology consulted, patient was taken to catheterization on 06/25 in the afternoon; findings: Obstructive coronary disease involving the 2nd diagonal branch. Right dominant coronary system Normal left ventricular filling pressures No evidence of aortic stenosis Started metoprolol tartrate 12.5mg bid, imdur 30mg qAM, ASA 81mg qAM Continue valsartain 80mg PO qd HLD Rosuvastatin increased from 10mg to 20mg qAM GERD Continue pantoprazole FEN: heart-healthy diet Code status: full code DVT ppx: heparin PT/OT: not indicated Dispo: PCU tele for post-catheterization recovery Admission and Anticipated Discharge Date Admission Date: June 25, 2021 Results & Data Results & Data ([facility]) Vital Signs (Past 12 Hours) Vital Signs Temp Pulse Resp BP Pulse Ox 06/26/21 03:25 36.6 C 58 L 18 100/63 95 06/26/21 00:06 36.6 C 55 L 20 100/49 L 96 06/25/21 20:20 37.0 C 64 18 113/49 L 94 06/25/21 20:10 113/75 (1) Chest pain Chest pain type: unspecified Qualified Code(s): R07.9 - Chest pain, unspecified
[2021-06-26 08:57] LABS: Basophils # (auto) 0.02 K/uL (0-0.2); Basophils % (auto) 0.4 %; Eosinophils # (auto) 0.06 K/uL (0-0.5); Eosinophils % (auto) 1.1 %; Hematocrit (blood only) 39.7 % (42-52); Immature Granulocytes # (auto) 0.01 K/uL (0.00-0.02); Immature Granulocytes % (auto) 0.2 %; Lymphocytes % (auto) 24.8 %; Mean Corpuscular Hemoglobin 31.2 pg (25-34); Mean Corpuscular Hgb Conc 35.3 g/dL (32-36); Mean Corpuscular Volume 88.4 fL (80-100); Mean Platelet Volume 9.5 fL (7.4-10.4); Monocytes % (auto) 7.1 %; Neutrophils # (auto) 3.76 K/uL (1.4-6.5); Neutrophils % (auto) 66.4 %; Platelet Count 231 K/uL (130-400); RDW Coefficient of Variation 12.4 % (11.5-14.5); RDW Standard Deviation 39.7 fL (36.4-46.3); Red Blood Count 4.49 M/uL (4.7-6.1); White Blood Count 5.65 K/uL (4.8-10.8)
[2021-06-26] MEDS ORDERED: ROSUVASTATIN CALCIUM 20 MG TAB PO SCH (09:00)
[2021-06-26 09:20] LABS: Partial Thromboplastin Ratio 2.3
[2021-06-26] MEDS: ASPIRIN 81 MG ECTAB PO SCH (09:20)
[2021-06-26] MEDS: ISOSORBIDE MONO EXTENDED REL 30 MG TABCR PO SCH (09:20)
[2021-06-26] MEDS: METOPROLOL TARTRATE 25 MG TAB PO SCH (09:21)
[2021-06-26 09:22] LABS: Partial Thromboplastin Time 61.5 Seconds (21.0-31.0)
[2021-06-26] MEDS: PANTOprazole 40 MG TAB PO SCH (09:22)
[2021-06-26] MEDS: VALSARTAN 80 MG TAB PO SCH (09:22)
[2021-06-26 09:33] LABS: BUN Creatinine Ratio 14.6 (10-20); Calcium 8.7 mg/dl (8.5-10.1); Creatinine Clr Calc Pharmacy 68.6 ml/min; Est GFR (African American) 83.4 ml/min; Potassium 3.5 mmol/L (3.5-5.1)
--- NOTE | 2021-06-26 09:54 | Cardiology Progress Note ---
Date of Service June 26, 2021 Assessment & Plan (1) CAD (coronary artery disease): Plan: -70% ostial D2 stenosis. -metoprolol and imdur added. -can stop heparin gtt. -continue Diovan, Crestor, and aspirin. -stable for discharge. -follow up with me in 2-3 weeks. (2) H/O: HTN (hypertension): Plan: -adequate control on current regimen. (3) Hyperlipidemia: Plan: -continue rosuvastatin. Admission and Anticipated Discharge Date Admission Date: June 25, 2021 Physical Exam Physical Exam: In general this is a well-developed well-nourished white male in no acute distress. HEENT exam is negative. Neck is supple with full carotid upstrokes. There are no carotid bruits. Jugular venous pressure is flat at 90. There is no thyromegaly. Cardiovascular exam reveals a regular rhythm with a normal S1 and S2. No S3, S4, or murmurs are noted. Lungs are clear without rales, rhonchi, or wheezes. Abdomen is soft and nontender without bruits. Extremities reveal intact radial artery and posterior tibial pulses bilaterally. There is no peripheral edema. Results & Data ([facility]) Vital Signs (Past 12 Hours) Vital Signs Temp Pulse Resp BP Pulse Ox 06/26/21 07:15 36.6 C 68 18 118/74 94 06/26/21 03:25 36.6 C 58 L 18 100/63 95 06/26/21 00:06 36.6 C 55 L 20 100/49 L 96 PG Care Time/CCT Total # of Minutes Spent Total Time Spent with Patient: Total time spent is greater than 50% in coordination of care (as documented) at patient's floor/unit and/or counseling patient: Coding Level of Care Code 14697 Subseq Hosp Care Lvl 3 Diagnoses H/O: HTN (hypertension) Z86.79 Hyperlipidemia E78.5 CAD (coronary artery disease) I25.10
--- NOTE | 2021-06-26 12:12 | Discharge Summary ---
Date of Service June 26, 2021 Admission HPI Per Admitting Provider Mr. Houser is a 56 yo gentleman with a PMHx of hypertension and hyperlipidemia who came in today for evaluation of left sided chest pain. He first experienced left sided chest pain on Tuesday06/22/21 - it lasted < 15 minutes and then subsided without intervention. It recurred again on Tuesday06/23/21 with a similar duration and disappearance. Today while at work (he is employed as a school security inspector), he was walking briskly and again felt the left sided chest pain. This time it radiated down the left arm. There was no associated SOB, diaphoresis or nausea. He went to the school nurse, who took his vital sig ns and told him they were normal. He then went to see his PCP, Dr. Franklin for an office visit. Dr. Franklin ordered an in office EKG, which Mr. Houser was told was normal. He also sent in a script for nitroglycerin and scheduled him for a stress test on 06/26/21. Mr. Houser took the rest of the day off work - after speaking with his brother who is a physician, he decided to come in to the ED for further evaluation. Family history: Father had a heart attack at the age of 55. Social Hx: No tobacco use. Drinks ~ 10 alcohol beverages per week (beer/wine). In the ED, he was afebrile with normal HR and breathing. BP slightly elevated to 168/109. His WBC was mildly low at 3.89; CBC otherwise unremarkable. Coags normal. T bili mildly elevated at 1.1. CMP normal. Trop elevated to 0.193. CXR showing no acute process. EKG showing NSR, no acute ST segments changes, appears unchanged from previous. He wa given ASA 324mg. Admission Exam Per Admitting Provider Constitutional: WD/WN, vitals as above cooperative and comfortable; no acute distress Eyes: + anicteric sclerae ENMT: external ear and nose normal, oropharynx normal Neck: trachea midline Respiratory: normal respiratory effort, lungs clear to auscultation Cardiovascular: RRR, no murmur, no edema Heart Sounds: normal S1 and normal S2 Vessels: normal carotid upstroke; no carotid bruit Extremities: no pedal edema Gastrointestinal (Abdomen): normal bowel sounds, soft, nontender, no hepatosplenomegaly Musculoskeletal: Head/Neck/Chest: normocephalic and head atraumatic Skin: no rashes, warm and dry Neurologic: moves all extremities Psychiatric: A+Ox3, euthymic affect Principal Diagnosis NSTEMI Discharge Exam Constitutional: well-appearing, no acute distress CV: regular rhythm, no murmur appreciated, extremities well-perfused, no LE edema Resp: CTABL, no wheezes/rales/rhonchi appreciated, no increased work of breathing MSK: no gross deformities appreciated Skin: warm, dry, no rash appreciated Neuro: AOx4, no focal neurological deficits appreciated Discharge Data Allergies Allergy/AdvReac Type Severity Reaction Status Date / Time No Known Allergies Allergy Unknown Verified 06/24/21 19:33 Consultations 06/24/21 19:27 ED Decision to Admit Stat 06/24/21 22:14 Consult Cardiology Routine Procedures Performed Operation Date: 06/25/21 09:15 Actual Procedures p Cath, Left with Cors and Vent - Ger Tay MD s Cineradiography w/Routine Exam - Ger Tay MD Ordered Studies 06/25/21 09:07 CL Cath Imgs for PACS use only Routine 06/25/21 09:08 CL Cath Imgs for PACS use only Routine Hospital Course (1) Chest pain: NSTEMI Patient presented a few-day history of exertional chest pain in the setting of multiple ACS risk factors including strong family history of [place]. Troponin was elevated on admission to 0.193 and continued to rise. Cardiology was consulted and heparin drip was initiated. Echo revealed normal left ventricular systolic function without wall motion abnormalities. Patient was taken for catheterization, which revealed: Obstructive coronary disease involving the 2nd diagonal branch. Right dominant coronary system Normal left ventricular filling pressures No evidence of aortic stenosis No stents were placed. Patient was started on metoprolol tartrate (12.5mg bid), imdur (30mg qd), and aspirin (81mg qd). Patient's valsartan was continued. Patient was discharged on hospital day three in stable condition. Patient was hemodynamically stable for the entirety of this hospitalization. HLD Patient's home rosuvastatin was increased from 10mg daily to 20mg daily GERD Patient's home regimen was continued. Total Time Total Time Spent Total Time Spent (In Minutes): see attending documentation Discharge Plan Discharge Items Patient Disposition: Home - Self-Care Reason For Visit: CHEST PAIN Discharge Diagnosis: NSTEMI Activity: Resume your previous activity Non-emergency contact: Primary Care Provider and Hearing Care Professional Call non-emergency contact if: your symptoms worsen Follow-up/Referrals: Lawrence Franklin [Primary Care Provider] - 07/02/21 3:15 pm (Please follow up with Dr. Franklin on 07/02/21 at 3:15 pm. Please arrive to the office at 3:00 pm for your appointment. If you are unable to keep this appointment, please call the office to reschedule at [phone].) Diet: Heart Healthy Addtl Attending Provider Instructions: You were admitted to the hospital for chest pain, which was found to be likely caused by your heart. You underwent a cardiac catheterization, and the cardiologists think managing your condition medically would be more beneficial than placing a stent or doing a different procedure. You've recovered from the procedure well and we feel it is safe for you to return home. A discharge summary will be sent to your primary care physician to ensure continuity of care. Please bring this discharge summary with you to your next office appointment so that your provider can review it at that time. Follow-up appointments: Make a follow-up appointment with your PCP within the next week. It is very important that you follow up with them shortly after discharge from the hospital. Keep all your follow-up appointments as already scheduled. If you cannot make an appointment, notify your provider. Medications: Your medication list has been reviewed and reconciled upon discharge to ensure accuracy and continuity of care. An updated list of all your medications is included with your hospital discharge paperwork. Please review this list closely, and make note of any changes. * We sent a new medication called metoprolol tartrate (12.5mg) to your pharmacy. Take metoprolol tartrate (12.5mg) one tablet daily. * We sent a new medication called imdur (isosorbide mononitrate) to your pharmacy. Take imdur (30mg) one tablet daily. * Take aspirin (81mg) one tablet daily. * Continue taking valsartan (80mg) one tablet daily. Take your medications as instructed; do not skip a dose of your medicines. Make sure all of your doctors know every medicine you are taking (including pfdp-[id number] medicines, vitamins, and supplements). Call your primary care provider before taking any new medicines (including ymzr-[id number] medicines, vitamins, and supplements), because some of these may interact with your current medications, or may make your symptoms worse. Tell your primary care provider if you cannot afford your medications. CONTACT YOUR PRIMARY CARE PROVIDER if you experience any of the following: Worsening fatigue with exercise Mild chest pain Difficulty following your treatment plan, or difficulty taking medications CALL 911 OR GO TO THE EMERGENCY DEPARTMENT if you experience any of the following: Sudden, severe abdominal pain or nausea/vomiting Severe chest pain, or chest pain that radiates (moves) to your jaw or arm Sudden, severe shortness of breath or difficulty breathing Thank you for allowing us to participate in your care. Pending Studies at Discharge: No Stand-Alone Forms: My [facility] Medications and DC Order Prescriptions: New isosorbide mononitrate 30 mg Tablet Extended Release 24 Hr 30 mg PO QAM Qty: 30 RF: 0 rosuvastatin [Crestor] 20 mg Tablet 20 mg PO QAM 30 Days Qty: 30 RF: 0 metoprolol tartrate 25 mg Tablet 12.5 mg PO BID 30 Days Qty: 60 RF: 0 Continued multivitamin Tablet 1 tab PO DAILY RF: 0 valsartan [Diovan] 80 mg tablet 80 mg PO DAILY RF: 0 aspirin 81 mg Tablet,Delayed Release (Dr/Ec) 81 mg PO .TODAY RF: 0 omeprazole 20 mg capsule,delayed release(DR/EC) 20 mg PO DAILY RF: 0 zinc 50 mg Tablet 50 mg PO DAILY RF: 0 omega-3 fatty acids Capsule 1,000 mg PO DAILY RF: 0 cholecalciferol (vitamin D3) [Vitamin D3] 125 mcg (5,000 unit) Tablet 125 mcg PO DAILY RF: 0 turmeric 400 mg Capsule 800 mg PO DAILY RF: 0 Discontinued rosuvastatin [Crestor] 10 mg tablet 10 mg PO QID RF: 0 Discharge Orders: Discharge Order (Routine); Ordered 06/26/21 Ordered By: Isaiah Segal Admission Data Admit Date/Time: 06/25/21 11:10 Attending Provider: Ger Benavides Admit Provider: Patricia Castro Primary Care Provider: Lawrence Franklin Other Providers: Ger Tay ; Maryann Orozco Other Interventions: Discharge Summary Assessment (RN) Last Done: 06/26/21 13:24 Supervising Physician Co-Signing Physician Notes Attending attestation Pt seen and examined in concert with Dr. Segal. In agreement with the documented findings as noted in the resident documentation with any exceptions or additions as noted here. Asymptomatic in bed after catheterization, Imdur On examination, S1/S2 nl RRR no MCG. CTAB. Abd NT/ND BS+ve NSTEMI s/p cath w/o stent - continue imdur, metoprolol tartrate, valsartan and ASA as noted above. HLD - continue statin therapy at 20mg Else see resident documentation as noted. Total time spent on this case on the day of discharge including communication and management: 40 minutes.
--- NOTE | 2021-06-27 06:20 | Electrocardiogram Report ---
Test Reason : Blood Pressure : / mmHG Vent. Rate : 057 BPM Atrial Rate : 057 BPM P-R Int : 172 ms QRS Dur : 092 ms QT Int : 438 ms P-R-T Axes : 036 009 027 degrees QTc Int : 426 ms Sinus bradycardia Otherwise normal ECG When compared with ECG of 24-JUN-2021 17:28, Minimal criteria for Anterior infarct are no longer Present Confirmed by Neo Bolden ([id number]) on 06/27/2021 6:19:39 AM Referred By: REFERRED SELF Confirmed By:Neo Bolden
== END 2021-06-26 14:05 | disposition home or self-care (01) | DRG 282 ==
LOC: ED 17:11 → 2W 17:11 → SUATTDRO 19:43 → 2W 21:37 → SUATTDRO 06-25 11:10 → 2S 06-25 15:41